=== PATIENT | male | born 1955 | race Two or more races ===

== ENCOUNTER 2021-11-18 20:14 | Inpatient (IN) | payer MEDICARE, MEDICAID ==
[~2021-11-18] VITALS: Ht 177.8 cm; Wt 78.0 kg
[2021-11-18] MEDS ORDERED: niCARdipine 25 MG/10 ML VIAL IV ONE (20:36)
[2021-11-18] MEDS ORDERED: ADENOSINE 6 MG/2 ML INJ IV ONE (20:36)
[2021-11-18] MEDS ORDERED: ANGIOMAX 250 MG VIAL IV ONE (20:36)
[2021-11-18] MEDS ORDERED: fentaNYL CITRATE 100 MCG/2 ML VL ONE (20:37)
[2021-11-18] MEDS ORDERED: MIDAZOLAM HCL 2MG/2ML 2ml VIAL (1mg/ml) ONE (20:37)
[2021-11-18] MEDS ORDERED: SODIUM CHL 0.9% 50 ML ONE (20:37)
[2021-11-18] MEDS ORDERED: EPINEPHrine HCL 1 MG/10 ML SYRG ONE (20:41)
[2021-11-18] MEDS ORDERED: HEPARIN IN NS 1000Units/500mL 1,500 ML ONE (20:52)
[2021-11-18] MEDS ORDERED: LIDOCAINE 2%HCL (LOCAL ANESTH.) INJ 10ml MDV ONE (20:52)
[2021-11-18] MEDS ORDERED: MORPHINE SULFATE 4 MG/ML SYR/VIAL ONE (20:57)
[2021-11-18] MEDS ORDERED: ONDANSETRON HCL 4 MG/2 ML VIAL ONE (20:57)
[2021-11-18 20:59] LABS: Basophils # (auto) 0.1 10 ^3/uL (0-0.2); Basophils % (auto) 0.8 % (0.0-2.0); Eosinophils # (auto) 0.2 10 ^3/uL (0-0.8); Eosinophils % (auto) 2.2 % (0.0-7.0); Hematocrit 38.2 % (41.0-53.0); Hemoglobin 12.9 g/dL (13.5-17.5); Lymphocytes # (auto) 3.3 10 ^3/uL (0.4-5.4); Lymphocytes % (auto) 28.9 % (10.0-50.0); Mean Corpuscular Hemoglobin 30.3 pg (28.0-32.0); Mean Corpuscular Hgb Conc. 33.8 g/dL (32.0-36.0); Mean Corpuscular Volume 89.6 fL (80.0-100.0); Neutrophils # (auto) 6.7 10 ^3/uL (1.6-8.6); Neutrophils % (auto) 59.1 % (37.0-80.0); Nucleated Red Blood Cells % 0.2 %; Red Blood Cells 4.26 10^6/uL (4.5-5.90); White Blood Cell 11.3 10^3/uL (4.4-10.8)
[2021-11-18] MEDS ORDERED: ONDANSETRON HCL 4 MG/2 ML VIAL IV ONE (21:15)
[2021-11-18] MEDS ORDERED: MORPHINE SULFATE 4 MG/ML SYR/VIAL IV ONE (21:15)
[2021-11-18 21:16] LABS: Albumin 3.5 g/dL (3.4-5.0); BUN/Creatinine Ratio 11.5; Calcium 9.7 mg/dL (8.5-10.1); Potassium 3.8 mmol/L (3.5-5.1)
[2021-11-18] MEDS ORDERED: diphenhdrAMINE HCL 50 MG/1 ML VL ONE (21:16)
[2021-11-18 21:19] LABS: Bilirubin, Total 0.8 mg/dL (0.2-1.0); Total Protein 8.6 g/dL (6.4-8.2)
[2021-11-18] MEDS ORDERED: IODIXANOL 320MG/ML 100ML BTL IV ONE (21:31)
[2021-11-18] MEDS ORDERED: EPTIFIBATIDE INJ (2MG/ML) 10ML VIAL IV ONE (21:35)
[2021-11-18] MEDS ORDERED: TICAGRELOR 90 MG TAB ONE (22:02)
[2021-11-18] MEDS ORDERED: NITROGLYCERIN 0.4 MG SL TAB SL PRN ×2 (22:30→22:45)
[2021-11-18] MEDS ORDERED: MORPHINE SULFATE 4 MG/ML SYR/VIAL IV PRN (22:45)
[2021-11-18] MEDS ORDERED: MORPHINE SULFATE INJ 2 MG/ml SYRG IV PRN (22:45)
[2021-11-18] MEDS ORDERED: ACETAMINOPHEN 500 MG TAB PO PRN (22:45)
[2021-11-18] MEDS ORDERED: ONDANSETRON HCL 4 MG/2 ML VIAL IV PRN (22:45)
[2021-11-18] MEDS ORDERED: ZOLPIDEM TARTRATE 5 MG TAB PO PRN (23:45)
[2021-11-19] VITALS (8 sets, daily range): BP systolic 100–129; BP diastolic 61–76
[2021-11-19] MEDS ORDERED: METH5TAB2 PO (00:41)
[2021-11-19] MEDS: LORazepam 0.5 MG TAB PO PRN ×2 (01:52→22:21)
[2021-11-19] MEDS: MORPHINE SULFATE INJ 2 MG/ml SYRG IV PRN ×2 (03:54→11:09)
[2021-11-19 09:18] LABS: Basophils # (auto) 0 10 ^3/uL (0-0.2); Basophils % (auto) 0.4 % (0.0-2.0); Eosinophils # (auto) 0 10 ^3/uL (0-0.8); Eosinophils % (auto) 0.1 % (0.0-7.0); Lymphocytes # (auto) 1.2 10 ^3/uL (0.4-5.4); Lymphocytes % (auto) 9.2 % (10.0-50.0); Mean Corpuscular Hemoglobin 30.5 pg (28.0-32.0); Mean Corpuscular Hgb Conc. 34.5 g/dL (32.0-36.0); Mean Corpuscular Volume 88.6 fL (80.0-100.0); Monocytes # (auto) 1.1 10 ^3/uL (0-1.3); Monocytes % (auto) 8.5 % (0.0-12.0); Neutrophils # (auto) 10.2 10 ^3/uL (1.6-8.6); Neutrophils % (auto) 81.8 % (37.0-80.0); Red Blood Cells 4.41 10^6/uL (4.5-5.90); Red Cell Distribution Width 13.1 % (11.8-14.3); White Blood Cell 12.5 10^3/uL (4.4-10.8)
[2021-11-19 09:29] LABS: Hemoglobin 13.5 g/dL (13.5-17.5)
[2021-11-19] MEDS: TICAGRELOR 90 MG TAB PO SCH ×2 (09:34→22:14)
[2021-11-19] MEDS: ASPirin-EC 81 mg tab PO SCH (09:35)
[2021-11-19] MEDS: ATORVASTATIN 20 MG TAB PO SCH (09:35)
[2021-11-19] MEDS: METOPROLOL TARTRATE 25 MG TAB PO SCH (09:36)
[2021-11-19] MEDS: METHADONE HCL 10 MG TAB PO SCH ×2 (09:40→22:00)
[2021-11-19 09:46] LABS: Albumin 3.3 g/dL (3.4-5.0)
[2021-11-19 09:50] LABS: BUN/Creatinine Ratio 14.3; Bilirubin, Total 0.6 mg/dL (0.2-1.0); Total Protein 8.5 g/dL (6.4-8.2)
[2021-11-19 13:53] LABS: Cholesterol 145 mg/dL (< 200); Triglycerides 47 mg/dL (< 150)
[2021-11-19 13:55] LABS: HDL Cholesterol 57 mg/dL (40-59); LDL Cholesterol 83 mg/dL (< 100)
[2021-11-19] MEDS: TAMSULOSIN HYDROCHLORIDE 0.4 MG CAP PO SCH (17:55)
[2021-11-20 05:00] VITALS: BP 100/57
[2021-11-20] MEDS: METHADONE HCL 10 MG TAB PO SCH (07:18)
[2021-11-20 08:00] VITALS: BP 100/53
[2021-11-20 08:40] VITALS: BP 100/53
[2021-11-20] MEDS: ASPirin-EC 81 mg tab PO SCH (09:31)
[2021-11-20] MEDS: TICAGRELOR 90 MG TAB PO SCH ×2 (09:31→21:41)
[2021-11-20] MEDS: ATORVASTATIN 20 MG TAB PO SCH (09:32)
[2021-11-20] MEDS: METOPROLOL TARTRATE 25 MG TAB PO SCH (09:33)
[2021-11-20 13:00] VITALS: BP 105/59
[2021-11-20 16:55] VITALS: BP 109/59
[2021-11-20] MEDS: TAMSULOSIN HYDROCHLORIDE 0.4 MG CAP PO SCH (17:35)
[2021-11-20 22:00] VITALS: BP 119/59
[2021-11-21 05:00] VITALS: BP 143/58
[2021-11-21] MEDS ORDERED: METHADONE HCL 10 MG TAB PO SCH (07:00)
[2021-11-21 08:52] VITALS: BP 116/75
[2021-11-21] MEDS: METOPROLOL TARTRATE 25 MG TAB PO SCH (09:46)
[2021-11-21] MEDS: ATORVASTATIN 20 MG TAB PO SCH (09:46)
[2021-11-21] MEDS: ASPirin-EC 81 mg tab PO SCH (09:46)
[2021-11-21] MEDS: TICAGRELOR 90 MG TAB PO SCH (09:47)
[2021-11-21 13:00] VITALS: BP 108/67
[2021-11-21] MEDS ORDERED: ASPI81CH74 PO (13:09)
[2021-11-21] MEDS ORDERED: METO25TA5 PO (13:09)
[2021-11-21] MEDS ORDERED: LISI20TA28 PO (13:09)
[2021-11-21] MEDS ORDERED: TICA90TA PO (13:09)
[2021-11-21] MEDS ORDERED: ATOR80TA PO (13:09)
[2021-11-21 13:47] VITALS: BP 131/74
== END 2021-11-21 15:00 | disposition home or self-care (01) | DRG 174 ==
LOC: ER 20:14 → EDBD 20:14 → TELE 22:33 → TELE-WESTW 23:52
PROVIDERS: ADMIT Specialist; ATTEND Family Medicine
PROC: 027035Z Dilation of Coronary Artery, One Artery with Two Drug-eluting Intraluminal Devices, Percutaneous Approach (ICD-10-PCS; principal; 2021-11-18)
PROC: 06HY33Z Insertion of Infusion Device into Lower Vein, Percutaneous Approach (ICD-10-PCS; 2021-11-18)
PROC: B240ZZ3 Ultrasonography of Single Coronary Artery, Intravascular (ICD-10-PCS; 2021-11-18)
PROC: 02C03ZZ Extirpation of Matter from Coronary Artery, One Artery, Percutaneous Approach (ICD-10-PCS; 2021-11-18)
PROC: B41FYZZ Fluoroscopy of Right Lower Extremity Arteries using Other Contrast (ICD-10-PCS; 2021-11-18)
PROC: 4A023N7 Measurement of Cardiac Sampling and Pressure, Left Heart, Percutaneous Approach (ICD-10-PCS; 2021-11-18)
PROC: B211YZZ Fluoroscopy of Multiple Coronary Arteries using Other Contrast (ICD-10-PCS; 2021-11-18)
PROC: 06HY33Z Insertion of Infusion Device into Lower Vein, Percutaneous Approach (ICD-10-PCS; 2021-11-18)
PROC: 3E073PZ Introduction of Platelet Inhibitor into Coronary Artery, Percutaneous Approach (ICD-10-PCS; 2021-11-18)
DX: I21.09 ST elevation (STEMI) myocardial infarction involving other coronary artery of anterior wall (principal); F11.90 Opioid use, unspecified, uncomplicated; Z20.822 Contact with and (suspected) exposure to COVID-19; N40.0 Benign prostatic hyperplasia without lower urinary tract symptoms; Z79.82 Long term (current) use of aspirin; Z90.49 Acquired absence of other specified parts of digestive tract; Z72.0 Tobacco use
CPT/HCPCS: 36415; 71045; 75710; 80053; 80061; 83880; 84484; 85025; 92928; 92973; 92978; 93005; 93306; 93458; 99152; 99153; 99291; C1874; G0378; J0153; J2001; J2250; J2405; Q9967

== ENCOUNTER 2023-11-02 06:50 | Day surgery (SDC) | payer MEDICARE, MEDICAID ==
[2023-10-27 09:32] LABS: Urine Bacteria None Seen /hpf (None Seen)
[2023-10-27 09:34] LABS: Basophils # (auto) 0.1 10 ^3/uL (0-0.2); Eosinophils # (auto) 0.2 10 ^3/uL (0-0.8); Eosinophils % (auto) 3.2 % (0.0-7.0); Hematocrit 41.9 % (41.0-53.0); Lymphocytes # (auto) 1.7 10 ^3/uL (0.4-5.4); Lymphocytes % (auto) 23.7 % (10.0-50.0); Mean Corpuscular Hemoglobin 29.6 pg (28.0-32.0); Mean Corpuscular Hgb Conc. 33.3 g/dL (32.0-36.0); Mean Corpuscular Volume 88.8 fL (80.0-100.0); Monocytes # (auto) 0.5 10 ^3/uL (0-1.3); Neutrophils # (auto) 4.7 10 ^3/uL (1.6-8.6); Neutrophils % (auto) 65.1 % (37.0-80.0); Red Blood Cells 4.72 10^6/uL (4.5-5.90); Red Cell Distribution Width 14.3 % (11.8-14.3); White Blood Cell 7.3 10^3/uL (4.4-10.8)
[2023-10-27 09:52] LABS: Urine Blood Negative /uL (Negative); Urine Clarity Clear (Clear); Urine Color Yellow (Yellow); Urine Mucus FEW (None Seen); Urine Protein, UAD Negative (Negative); Urine Specific Gravity 1.025 (1.001-1.035); Urine Urobilinogen Normal (Negative); Urine WBC 7 /hpf (0 - 3); Urine pH 5.5 (5.0-9.0)
[2023-10-27 10:11] LABS: Alanine Aminotransferase 29 U/L (7-40); Albumin 4.5 g/dL (3.2-4.8); Alkaline Phosphatase 81 U/L (46-116); Anion Gap 4 (5-15); Aspartate Aminotransferase 34 U/L (13-40); BUN/Creatinine Ratio 15.2 (10.0-20.0); Blood Urea Nitrogen 20 mg/dL (9-23); Calcium 9.4 mg/dL (8.5-10.1); Carbon Dioxide 27 mmol/L (20-30); Chloride 108 mmol/L (98-107); Glucose 93 mg/dL (74-106); Potassium 4.3 mmol/L (3.5-5.1); Sodium 139 mmol/L (136-145)
[2023-10-27 10:12] LABS: Bilirubin, Total 0.9 mg/dL (0.2-1.0); Total Protein 7.5 g/dL (5.7-8.2)
[2023-10-27 10:41] LABS: INR 1.09 (0.9-1.15); Prothrombin Time 11.4 sec (9.3-11.8)
[~2023-11-02] VITALS: Ht 177.8 cm; Wt 83.9 kg
[~2023-11-02 06:50] MED LIST: ASPI81CH74 PO; ATOR80TA PO; LEV50T PO; LISI2.5T47 PO; METO25TA5 PO; MULT-930 PO
[2023-11-02] MEDS ORDERED: mitoMYcin 40 MG in STERILE WATER 60 ML IS ONE (07:00)
[2023-11-02] MEDS ORDERED: ONDANSETRON HCL 4 MG/2 ML VIAL ONE (07:58)
[2023-11-02] MEDS ORDERED: SODIUM CHLORIDE LOCK 10 ML ONE (07:58)
[2023-11-02] MEDS ORDERED: fentaNYL CITRATE 100 MCG/2 ML VL ONE (07:58)
[2023-11-02] MEDS ORDERED: MIDAZOLAM HCL 2MG/2ML 2ml VIAL (1mg/ml) ONE (07:58)
[2023-11-02] MEDS ORDERED: EPINEPHrine HCL 1 MG/1 ML AMP ONE (07:58)
[2023-11-02] MEDS ORDERED: PROPOFOL 10 MG/ML 20 ML IV ONE (07:58)
[2023-11-02] MEDS ORDERED: KETAMINE 50mg/ML 1ml syringe ONE (07:59)
[2023-11-02] MEDS ORDERED: BUPIVACAINE 0.5% P/F INJ 10 ML VIAL ONE (07:59)
[2023-11-02] MEDS ORDERED: CIPROFLOXACIN 400MG/200ML 200 ML IV ONE (08:10)
[2023-11-02] MEDS ORDERED: MORPHINE SULFATE INJ 2 MG/ml SYRG IV PRN (08:30)
[2023-11-02] MEDS ORDERED: HYDROmorphone HCL 2 MG/ML VL/or syr IV PRN ×2 (08:30)
[2023-11-02] MEDS ORDERED: METOCLOPRAMIDE HCL 5MG/ml INJ 2ml VIAL IV ONE (08:30)
[2023-11-02 09:38] VITALS: PULSE 70; RESP 10; TEMP 97.8; O2SAT 97
[2023-11-02 10:45] VITALS: BP 120/65; PULSE 76; RESP 14; O2SAT 97
== END 2023-11-02 11:00 | disposition home or self-care (01) ==
LOC: SUR 06:50
PROVIDERS: ATTEND Urology
DX: C67.4 Malignant neoplasm of posterior wall of bladder (principal); I25.2 Old myocardial infarction; I10 Essential (primary) hypertension; E03.9 Hypothyroidism, unspecified; E78.5 Hyperlipidemia, unspecified; I20.9 Angina pectoris, unspecified; Z79.82 Long term (current) use of aspirin; Z79.899 Other long term (current) drug therapy; Z95.5 Presence of coronary angioplasty implant and graft; Z87.440 Personal history of urinary (tract) infections; Z98.890 Other specified postprocedural states; Z87.891 Personal history of nicotine dependence
CPT/HCPCS: 36415; 52224; 80053; 81001; 85025; 85610; 85730; 87086; 88305; 88342; J0171; J0744; J2250; J2405; J2704; J3010; J3490; J9280